=== PATIENT | male | born 1980 | race Two or more races ===

== ENCOUNTER 2017-01-19 19:03 | Emergency (ER) | payer MEDICAID ==
[2017-01-19 20:56] VITALS: BP 117/78
--- NOTE | 2017-01-19 21:31 | UC ---
Skin Complaint HPI - HPI Summary HPI Summary: Pt lives in shelter for help with MR. Pt here wth aide. Pt with significant flexion contracture of left wrist. Pt frequently slaps wrist. Pt noted today to have erythema of dorsum of flexed left wrist. Pt with small abrasion also noted. Pt with apart discomfort. No edema. + warmth. No fever, chills. no red streak. No other injuries. No analgesia taken. Pt otherwise at [facility] Pt's medications reviewed at this visit - History of Current Complaint Chief Complaint: UCUpperExtremity Time Seen by Provider: 01/19/17 20:39 Stated Complaint: HAND PAIN,SWELLING Hx Obtained From: Patient, Family/Production Clerk Onset/Duration: Gradual Onset Skin Exposure Onset/Duration: Hours Ago Timing: Constant Onset Severity: Mild Current Severity: Mild Pain Scale Used: Adult Non Verbal Location: Discrete Character: Redness Aggravating: Touch Alleviating: Unknown Associated Signs & Symptoms: Positive: Negative - Allergy/Home Medications Allergies/Adverse Reactions: Allergies Allergy/AdvReac Type Severity Reaction Status Date / Time No Known Drug Allergy Allergy See Comment Verified 01/19/17 20:56 Purex Laundry Soap AdvReac Unknown See Comment Uncoded 10/07/15 08:46 Review of Systems Constitutional: Negative Skin: Other - erythema Eyes: Negative ENT: Negative Respiratory: Negative Cardiovascular: Negative Gastrointestinal: Negative Genitourinary: Negative Motor: Negative Neurovascular: Negative Musculoskeletal: Negative Neurological: Negative Psychological: Negative All Other Systems Reviewed And Are Negative: Yes - Comments Additional Review of Systems Comments: per staff - pt with CP - PMH/Surg Hx/FS Hx/Imm Hx Previously Healthy: Yes Neurological History: Other - cp, seizures Other Neurological History: CP - Surgical History Surgical History: Yes Surgery Procedure, Year, and Place: CONTACT LENS BLOCKER Shunt Placement - Family History Known Family History: Positive: Unknown - Pt nonverbal with MR - Social History Occupation: Disabled Lives: [facility] Alcohol Use: None Substance Use Type: None Smoking Status (MU): Never Smoked Tobacco Have You Smoked in the Last Year: No - Immunization History Most Recent Influenza Vaccination: January 2015 Most Recent Tetanus Shot: 2007 Most Recent Pneumonia Vaccination: 2005 Physical Exam Triage Information Reviewed: Yes Appearance: Well-Appearing, No Pain Distress, Well-Nourished Vital Signs: Initial Vital Signs Temp 99.4 F 01/19/17 20:51 Pulse 82 01/19/17 20:51 Resp 16 01/19/17 20:51 BP 117/78 01/19/17 20:51 Pulse Ox 99 01/19/17 20:51 Vital Signs Reviewed: Yes Eye Exam: Normal Eyes: Positive: Conjunctiva Clear. Negative: Discharge ENT Exam: Normal ENT: Positive: Normal ENT inspection, Hearing grossly normal, Pharynx normal, TMs normal Neck exam: Normal Neck: Positive: Supple, Nontender, No Lymphadenopathy Respiratory: Positive: Chest non-tender, Lungs clear, Normal breath sounds, No respiratory distress, No accessory muscle use Cardiovascular Exam: Normal Cardiovascular: Positive: Other: - 2+ radial, ulna Abdominal Exam: Normal Abdomen Description: Positive: Nontender, No Organomegaly, Soft Bowel Sounds: Positive: Present Musculoskeletal: Positive: Other: - Pt wit full flexion contracture left wrist Neurological: Positive: Alert Skin: Positive: Other - dorsum left wrist - pt wtih 3x2 cm area erythema with small, non-suture abrasion warm no crepitus, no fluctance Course/Dx - Course Course Of Treatment: Pt with apparent early cellulitis on left wrist, dorsum - first noted by caregivers today. no cocern for abscess. previous resident in house with MRSA +. will start doxy. wound demarcated by me. pcp recheck 48 hours. return precautions discussed. customer care specialist comfortable and in agreement with plan - Diagnoses Provider Diagnoses: cellulitis Discharge - Discharge Plan Condition: Stable Disposition: HOME Prescriptions: Doxycycline (Monohydrate) [Doxycycline Monohydrate] 100 mg PO BID #20 cap Patient Education Materials: Cellulitis (ED) Referrals: Saira Horn MD [Primary Care Provider] - Additional Instructions: - take antibiotics 2 times a day as prescribed until gone - monitor wound for increased reddness, red streaking, pain - if this develops, it is recommended you go to the emergency department for further evaluation - Okay to give tylenol every 6 hours as needed for pain - Schedule a follow-up appointment with his provider in the next 36-48 hours. Contact his provider or return with questions or concerns
[2017-01-19] MEDS ORDERED: Doxycycline (NF) 100 MG TAB PO ONE (21:45)
[2017-01-19] MEDS ORDERED: DOXYcycline CAP(*) 100 MG ONE ×2 (21:52)
== END 2017-01-19 22:00 | disposition home or self-care (01) ==
LOC: UCEAST 19:03
DX: L03.114 Cellulitis of left upper limb (principal); M24.532 Contracture, left wrist; F79 Unspecified intellectual disabilities; R56.9 Unspecified convulsions
CPT/HCPCS: 99212; A9270-GY; G0463

== ENCOUNTER 2018-12-09 17:43 | Emergency (ER) | payer MEDICAID ==
[2018-12-09 21:15] LABS: Albumin 4.2 g/dL (3.2-5.2); Albumin/Globulin Ratio 1.4 (1-3); BUN/Creatinine Ratio 14.9 (8-20); Calcium 10.1 mg/dL (8.6-10.3); EGFR African American 99.5 (>60); EGFR Non-African American 82.2 (>60); Globulin 3.1 g/dL (2-4); Total Bilirubin 0.2 mg/dL (0.2-1.0); Total Protein 7.3 g/dL (6.4-8.9)
[2018-12-09 21:18] LABS: Potassium 4.1 mmol/L (3.5-5.0)
[2018-12-09 22:13] LABS: ABS Eosinophils 0.2 10^3/ul (0-0.6); ABS Lymphocytes 2.7 10^3/ul (1.0-4.8); ABS Monocytes 0.9 10^3/ul (0-0.8); ABS Neutrophils 4.4 10^3/ul (1.5-7.7); Eosinophil % 2.2 %; Hematocrit 42 % (42-52); Hemoglobin 14.2 g/dL (14.0-18.0); Lymphocyte % 32.9 %; Mean Corpuscular HGB Conc 34 g/dL (31-36); Mean Corpuscular Hemoglobin 31 pg (27-31); Mean Corpuscular Volume 93 fL (80-94); Mean Platelet Volume 7.8 fL (7.4-10.4); Platelet Count 315 10^3/uL (150-450); Red Blood Count 4.57 10^6 /uL (4.18-5.48); Red Cell Distribution Width 14 % (10-15); White Blood Count 8.3 10^3/uL (3.5-10.8)
[2018-12-10] MEDS ORDERED: Divalproex ER TAB(*) 500 MG PO ONE (00:41)
--- NOTE | 2018-12-10 00:47 | ED ---
Neurological HPI - HPI Summary HPI Summary: The pt is a 38 yr old male accompanied by his caregiver [facility] c/o seizure and possible dehydration. He is unable to respond to medical questioning independently due to MR and his caregiver states that he has had 4 seizures this week. 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 She also mentions that the [facility] neurology department sent the pt to the ED for bloodwork. His caregiver reports no fever and that he is incontinent. He takes a 750mg dose of depakote in the morning (500 mg depakote, one tablet, and 125 mg depakote, two tablets) and a 1000mg (500 mg, two tablets) dose at night. The pt also has Hx of seizures, mental retardation, and developmental delay. - History of Current Complaint Chief Complaint: EDSeizure Stated Complaint: SEIZURE PER AFTERSCHOOL Time Seen by Provider: 12/10/18 00:32 Hx Obtained From: Family/Director Of Database Marketing Hx From Patient Unobtainable Due To: Other - MR Onset/Duration: Sudden Onset, Started hours ago, Resolved Number of Seizures: 2 Pain Intensity: 0 Pain Scale Used: 0-10 Numeric Character: Other: - seizure Associated Signs and Symptoms: Positive: Seizure, Incontinent Bladder/Bowel. Negative: Fever - Additional Pertinent History Primary Care Physician: ARLYN - Allergy/Home Medications Allergies/Adverse Reactions: Allergies Allergy/AdvReac Type Severity Reaction Status Date / Time No Known Allergies Allergy Verified 12/09/18 17:46 PMH/Surg Hx/FS Hx/Imm Hx Respiratory History: Reports: Hx Pneumonia GI History: Reports: Other GI Disorders - Chronic constipation History: Denies: Hx Acute Renal Failure, Hx Benign Prostatic Hyperplasia, Hx Chronic Renal Failure, Hx Dialysis, Hx Kidney Infection, Hx Kidney Stones, Other Problems/Disorders Musculoskeletal History: Reports: Other Musculoskeletal History - L hand contracture, L lower leg deformity Denies: Hx Arthritis, Hx Osteoporosis Neurological History: Reports: Hx Developmental Delay, Hx Seizures, Other Neuro Impairments/Disorders - mental retardation Denies: Hx Dementia, Hx Headaches, Hx Migraine, Hx Nerve Disease, Hx Spinal Cord Injury, Hx Transient Ischemic Attacks (TIA) Psychiatric History: Reports: Hx Community Mental Health Tx, Hx of Violent Episodes Against Others, Other Psychiatric Issues/Disorders - Severe MR - Cancer History Hx Chemotherapy: No Hx Radiation Therapy: No Hx Palliative Cancer Treatment: No - Surgical History Surgery Procedure, Year, and Place: ELEVATOR REPAIRER Shunt Placement Hx Anesthesia Reactions: No Infectious Disease History: No Infectious Disease History: Denies: Hx Clostridium Difficile, Hx Hepatitis, Hx Human Immunodeficiency Virus (HIV), Hx of Known/Suspected MRSA, Hx Shingles, Hx Tuberculosis, Hx Known/ Suspected VRE, Hx Known/Suspected VRSA, History Other Infectious Disease, Traveled Outside the [place] in Last 30 Days - Family History Known Family History: Positive: Unknown - Pt nonverbal with MR - Social History Alcohol Use: None Hx Substance Use: No Substance Use Type: Reports: None Hx Tobacco Use: No Smoking Status (MU): Never Smoked Tobacco Have You Smoked in the Last Year: No Review of Systems Negative: Fever Positive: incontinence Neurological: Other - Positive - Seizure, since resolved All Other Systems Reviewed And Are Negative: Yes - Comments Additional Review of Systems Comments: ROS obtained from caregiver as patient has mental retardation. Physical Exam - Summary Physical Exam Summary: VITAL SIGNS: Reviewed. GENERAL: Patient is a well-developed and nourished male who is lying comfortable in the stretcher. Patient is not in any acute respiratory distress. HEAD AND FACE: No signs of trauma. No ecchymosis, hematomas or skull depressions. No sinus tenderness. EYES: PERRLA, EOMI x 2, No injected conjunctiva, no nystagmus. EARS: Hearing grossly intact. Ear canals and tympanic membranes are within normal limits. MOUTH: Oropharynx within normal limits. NECK: Supple, trachea is midline, no adenopathy, no JVD, no carotid bruit, no c- spine tenderness, neck with full ROM CHEST: Symmetric, no tenderness at palpation LUNGS: Clear to auscultation bilaterally. No wheezing or crackles. CVS: Regular rate and rhythm, S1 and S2 present, no murmurs or gallops appreciated. ABDOMEN: Soft, non-tender. No signs of distention. No rebound no guarding, and no masses palpated. Bowel sounds are normal. EXTREMITIES: FROM in all major joints, no edema, no cyanosis or clubbing. NEURO: No acute neurological deficits. SKIN: Dry and warm Triage Information Reviewed: Yes Vital Signs On Initial Exam: Initial Vitals Temp Pulse Resp BP Pulse Ox 98.3 F 76 15 104/68 98 12/09/18 17:45 12/09/18 17:45 12/09/18 17:45 12/09/18 17:45 12/09/18 17:45 Vital Signs Reviewed: Yes Diagnostics - Vital Signs Vital Signs Temp Pulse Resp BP Pulse Ox 12/09/18 23:50 98.2 F 62 20 130/75 99 12/09/18 21:54 98.1 F 69 18 113/72 99 12/09/18 19:52 98 F 75 18 106/66 100 12/09/18 17:45 98.3 F 76 15 104/68 98 - Laboratory Lab Results: Lab Results 12/09/18 12/09/18 Range/Units 20:53 21:45 WBC 8.3 (3.5-10.8) 10^3/uL RBC 4.57 (4.18-5.48) 10^6 /uL Hgb 14.2 (14.0-18.0) g/dL Hct 42 (42-52) % MCV 93 (80-94) fL MCH 31 (27-31) pg MCHC 34 (31-36) g/dL RDW 14 (10-15) % Plt Count 315 (150-450) 10^3/uL MPV 7.8 (7.4-10.4) fL Neut % (Auto) 53.2 % Lymph % (Auto) 32.9 % [place] % (Auto) 11.2 % Eos % (Auto) 2.2 % Baso % (Auto) 0.5 % Absolute Neuts (auto) 4.4 (1.5-7.7) 10^3/ul Absolute Lymphs (auto) 2.7 (1.0-4.8) 10^3/ul Absolute Monos (auto) 0.9 H (0-0.8) 10^3/ul Absolute Eos (auto) 0.2 (0-0.6) 10^3/ul Absolute Basos (auto) 0.0 (0-0.2) 10^3/ul Absolute Nucleated RBC 0.0 10^3/ul Nucleated RBC % 0.0 Sodium 138 (135-145) mmol/L Potassium 4.1 (3.5-5.0) mmol/L Chloride 103 (101-111) mmol/L Carbon Dioxide 28 (22-32) mmol/L Anion Gap 7 (2-11) mmol/L BUN 15 (6-24) mg/dL Creatinine 1.01 (0.67-1.17) mg/dL Est GFR ( Amer) 99.5 (>60) Est GFR (Non-Af Amer) 82.2 (>60) BUN/Creatinine Ratio 14.9 (8-20) Glucose 84 (70-100) mg/dL Calcium 10.1 (8.6-10.3) mg/dL Total Bilirubin 0.20 (0.2-1.0) mg/dL AST 24 (13-39) U/L ALT 13 (7-52) U/L Alkaline Phosphatase 37 (34-104) U/L Total Protein 7.3 (6.4-8.9) g/dL Albumin 4.2 (3.2-5.2) g/dL Globulin 3.1 (2-4) g/dL Albumin/Globulin Ratio 1.4 (1-3) Valproic Acid 42.0 L (50-100) mcg/mL Result Diagrams: 12/09/18 21:45 12/09/18 20:53 Lab Statement: Any lab studies that have been ordered have been reviewed, and results considered in the medical decision making process. Course/Dx - Course Course Of Treatment: The pt is a 38 yr old male accompanied by his caregiver presenting to [facility] c/o seizure and possible dehydration. 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 He currently takes a 750mg dose of depakote in the morning and a 1000mg dose at night. The pt also has Hx of seizures, mental retardation, and developmental delay. Test results with no significant abnormalities expect for Absolute Monos @ 0.9, and Valproic acid @ 42.0. In the ED course the patient was given 1000mg Depakote PO. The pt should increase morning dose of depakote from 750mg to 1000mg. Follow -up with neurologist and PCP within 3 days. Return to the ED for any new or worsening symptoms. Patient will be discharged home and is advised to follow up with PCP and neurologist within 3 days. The patients caregiver is agreeable with this plan. - Diagnoses Provider Diagnoses: Seizure Discharge - Sign-Out/Discharge Documenting (check all that apply): Patient Departure - Discharged. Patient Received Moderate/Deep Sedation with Procedure: No - Discharge Plan Condition: Stable Disposition: HOME Patient Education Materials: Recurrent Seizures in Adults (ED) Referrals: Saira Horn MD [Primary Care Provider] - 3 Days Additional Instructions: Increase morning dose of depakote from 750mg to 1000mg. Follow-up with neurologist and PCP within 3 days. Return to the ED for any new or worsening symptoms. - Attestation Statements Document Initiated by Scribe: Yes Documenting Scribe: Heriberto Mayo Provider For Whom Scribe is Documenting (Include Credential): Noel Gilmore MD Scribe Attestation: IHeriberto, scribed for Noel Gilmore MD on 12/10/18 at 0348. Status of Scribe Document: Ready
[2018-12-10 01:29] VITALS: BP 133/85
== END 2018-12-10 01:30 | disposition home or self-care (01) ==
LOC: ED 17:43
DX: R56.9 Unspecified convulsions (principal)
CPT/HCPCS: 36415; 80053; 80164; 85025; 99283; A9270-GY

== ENCOUNTER 2019-04-09 21:06 | Emergency (ER) | payer MEDICAID ==
--- OUTSIDE RECORDS SUMMARY | 2019-04-09 21:16 | XMS REPORT | Continuity of Care Document ---
:1980 External Reference #:[id number] Author Name Erik Aguilar M.D. (transmitted by agent of provider Jd Cavanaugh) Address [address], [place] [address] Care Team Providers Name Role Phone Sandra Reina MD - Internal Care Team Information Switch Crew Supervisor [phone] Medicine Problems Active Problems Provider Date Epilepsy Yolanda Mata M.D. Onset: 09/21/2014 Severe cognitive impairment Yolanda Mata M.D. Onset: 09/21/2014 Social History Type Date Description Comments Sex Unknown ETOH Use Denies alcohol use Tobacco Use Start: Unknown Patient has never smoked Recreational Drug Use Denies Drug Use Smoking Status Reviewed: 02/23/19 Patient has never smoked Exercise Type/Frequency Does not exercise Allergies, Adverse Reactions, Alerts Description No Known Drug Allergies Medications Active Medications SIG Qnty Indications Ordering Date Provider Shane give one 300units Erik Jaime 06/23/2016 1GM/10ML teaspoonful (5ml) Constantine Aguilar Solution by mouth 2 times a day Lamictal take 1 tablet by 60tabs Erik Jaime 01/18/2015 200mg mouth twice a day Constantine Aguilar Tablets (seizures) Calcium + D 1 po qd Yolanda Joyner 05/25/2013 500/200 Constantine Mata Tablets Tizanidine HCL 1 po tid 90caps Yolanda Joyner 05/25/2013 4mg Constantine Mata Capsules Melatonin 1mg tabs, 2 po q Yolanda Joyner 05/25/2013 night.. Constantine Mata Depakote 2 by mouth every 90tabs Erik Jaime 07/27/2012 500mg morning and [address] every night at bedtime Celexa 1 po qd 90tabs Unknown 20mg Tablets Sabin Carbonate 1 po daily Unknown 300mg Tablets Lactulose 30 ml po bid 1Liter Unknown 10GM/15ML Solution Multivitamins 1 po qd 90tabs Unknown Tablets Colace 2 tabs po daily 180caps Unknown 100mg Capsules Senna Laxative 2 tab by mouth 90tabs Unknown 8.6mg every night Tablets Metrogel apply to facial Unknown 1% Gel twice daily Cerave to feet. Unknown Lotion Immunizations Description No Information Available Vital Signs Date Vital Result Comment 02/23/2019 11:06am Height 68 inches 5'8" Weight 144.00 lb Heart Rate 79 /min BP Systolic Sitting 104 mmHg BP Diastolic Sitting 78 mmHg Respiratory Rate 16 /min Pain Level 0 O2 % BldC Oximetry 98 % BMI (Body Mass Index) 21.9 kg/m2 12/13/2018 2:35pm Height 68 inches 5'8" Weight 151.00 lb pt in wheelchair Heart Rate 68 /min BMI (Body Mass Index) 23.0 kg/m2 Results Description No Information Available Procedures Description No Information Available Medical Devices Description No Information Available Encounters Type Date Location Provider Dx Diagnosis Office Visit 12/13/2018 [facility] Humberto Gavin NP Z79.899 Other director long term care 2:00[facility] (current) drug therapy G40.909 Epilepsy, unsp, not intractable, without status epilepticus Assessments Date Code Description Provider 02/23/2019 Z79.899 Other [facility] (current) drug therapy Erik Aguilar M.D. 02/23/2019 G81.14 Spastic hemiplegia affecting left Erik Aguilar M.D. nondominant side 02/23/2019 G40.919 Epilepsy, unspecified, intractable, without Erik Aguilar M.D. status epilepticus 12/13/2018 Z79.899 Other [facility] (current) drug therapy Humberto Gavin NP 12/13/2018 G40.909 Epilepsy, unspecified, not intractable, Humberto Gavin, CHANELL without status epile Plan of Treatment Future Appointment(s):08/24/2019 10:00 am - Erik [facility]ilar M[facility]D. at [facility]02/23/2019 - Erik Aguilar M.D.Z79.899 Other [facility] (current) drug veoucrkH77.14 Spastic hemiplegia affecting left nondominant sideG40.919 Epilepsy, unspecified, intractable, without status epilepticusFollow up:6 MONTHSRecommendations:stop diastat Functional Status Description No Information Available Mental Status Description No Information Available Referrals Description No Information Available
[2019-04-09] MEDS ORDERED: Cephalexin CAP* 500 MG PO ONE (21:18)
--- NOTE | 2019-04-09 21:27 | UC ---
Skin Complaint HPI - HPI Summary HPI Summary: 38-year-old male with developmental disability presents with caregiver from longterm with complaints of redness to the left lower extremity. Caregiver is unsure of the duration of symptoms but does note that he has had a long- standing foot ulcer to the plantar aspect of his left foot that has been followed by the [facility]. He was last evaluated there on 03/23. Caregiver denies fever, difficulty breathing, calf pain or swelling. - History of Current Complaint Chief Complaint: UCSkin Time Seen by Provider: 04/09/19 21:12 Stated Complaint: LEFT LEG SKIN COMPLAINT Hx Obtained From: Family/Rn Clinical Resource Pain Intensity: 0 - Allergy/Home Medications Allergies/Adverse Reactions: Allergies Allergy/AdvReac Type Severity Reaction Status Date / Time No Known Allergies Allergy Verified 04/09/19 21:16 Home Medications: Home Medications Calcium Carbonate [Calcium] 500 mg PO DAILY 04/09/19 [History Confirmed 04/09/19 ] Citalopram TAB* [CeleXA TAB*] 20 mg PO DAILY 04/09/19 [History Confirmed ] Melatonin/Pyridoxine HCl (B6) [Melatonin 1 mg Tablet] 2 mg PO BEDTIME 04/09/19 [ History Confirmed 04/09/19] PMH/Surg Hx/FS Hx/Imm Hx Neurological History: Seizures, Other - Hydrocephalus Psychological History: Other - Intelectual and developmental delay - Surgical History Surgical History: Yes Surgery Procedure, Year, and Place: ROCK CONTRACTOR Shunt Placement. tendon stretching left side - Family History Known Family History: Positive: Unknown - Pt nonverbal with MR - Social History Occupation: Disabled Lives: [facility] Alcohol Use: None Substance Use Type: None Smoking Status (MU): Never Smoked Tobacco Have You Smoked in the Last Year: No - Immunization History Most Recent Influenza Vaccination: January 2015 Most Recent Tetanus Shot: 2007 Most Recent Pneumonia Vaccination: 2005 Review of Systems All Other Systems Reviewed And Are Negative: Yes Constitutional: Negative: Fever, Chills Skin: Positive: Other - HPISee Respiratory: Positive: Negative Cardiovascular: Positive: Negative Gastrointestinal: Positive: Negative Genitourinary: Positive: Negative Musculoskeletal: Positive: Negative Neurological: Positive: Negative Psychological: Positive: Negative Is Patient Immunocompromised?: No Physical Exam - Summary Physical Exam Summary: GENERAL APPEARANCE: Alert and cooperative adult male with developmental delay who appears to be in no acute distress. CARDIAC: Normal S1 and S2. No S3, S4 or murmurs. Rhythm is regular. There is no peripheral edema, cyanosis or pallor. Extremities are warm and well perfused. Capillary refill is less than 2 seconds. Peripheral pulses intact. LUNGS: Clear to auscultation without rales, rhonchi, wheezing or diminished breath sounds. ABDOMEN: Positive bowel sounds. Soft, nondistended, nontender. No guarding or rebound. No masses or hepatosplenomegally. EXTREMITIES: Circumferential erythema with increased warmth to the left lower leg extending from the toes to the proximal lower leg. Calf was supple and appeared to be nontender. Circulation was intact. There was a 1.5 cm circular ulceration with eschar tissue to the plantar surface of the left foot immediately inferior to the MTP of the great toe without erythema, edema, or drainage. SKIN: Skin normal color, texture and turgor. Triage Information Reviewed: Yes Vital Signs: Initial Vital Signs Temp 97.6 F 04/09/19 21:10 Pulse 73 04/09/19 21:10 Resp 20 04/09/19 21:10 Pulse Ox 97 04/09/19 21:10 Vital Signs Reviewed: Yes Course/Dx - Course Course Of Treatment: 38-year-old male with developmental disability presents with caregiver from longterm with complaints of redness to the left lower extremity. Caregiver is unsure of the duration of symptoms but does note that he has had a long- standing foot ulcer to the plantar aspect of his left foot that has been followed by the [facility]. He was last evaluated there on 03/23. Caregiver denies fever, difficulty breathing, calf pain or swelling. Afebrile. Vital signs stable. Patient had circumferential erythema with increased warmth to the left lower leg extending from the toes to the proximal lower leg. Calf was supple and appeared to be nontender. Circulation was intact. There was a 1.5 cm circular ulceration with eschar tissue to the plantar surface of the left foot immediately inferior to the MTP of the great toe without erythema, edema, or drainage. Discussed with caregiver that the history and examination are consistent with a cellulitis of the left lower leg and of recommended treating with cephalexin 500 mg one capsule 4 times a day for 7 days. He was dispensed home with 2 doses of the antibiotic to start tonight and then another dose first thing in the morning and a prescription was sent for the remainder of the course. He is to follow-up with his primary care provider in one to 2 days for recheck of symptoms. Anticipatory guidance and warning symptoms were reviewed with the caregiver. Verbalizes understanding and agrees with plan of care. - Differential Diagnoses - Skin Complaint Differential Diagnoses: Cellulitis, Contact Dermatitis, Local Allergic Reaction , MRSA, Other - DVT - Diagnoses Provider Diagnosis: Cellulitis of left lower leg Discharge ED - Sign-Out/Discharge Documenting (check all that apply): Patient Departure All imaging exams completed and their final reports reviewed: No Studies - Discharge Plan Condition: Stable Disposition: HOME Prescriptions: Cephalexin CAP* [Keflex 500 CAP*] 500 mg PO QID #26 cap Patient Education Materials: Cellulitis (ED) Referrals: Saira Horn MD [Primary Care Provider] - 2 Days Additional Instructions: The history and physical are consistent with a cellulitis of the left lower leg. We will start an antibiotic to treat for the infection. Take cephalexin 500 mg one capsule 4 times a day for 7 days. Be sure to take the entire course even if symptoms improve. Follow-up with your primary care provider in one to 2 days for recheck of symptoms. Seek immediate medical attention in the emergency room if you develop a fever greater than 100.5 F, have redness that rapidly spreads, increased swelling of the leg, red streaking up the leg, or any worsening of symptoms. - Billing Disposition and Condition Condition: STABLE Disposition: Home
== END 2019-04-09 21:33 | disposition home or self-care (01) ==
LOC: UCCORT 21:06
DX: L03.116 Cellulitis of left lower limb (principal); R56.9 Unspecified convulsions; Z79.899 Other long term (current) drug therapy
CPT/HCPCS: 99212; A9270-GY; G0463

== ENCOUNTER 2019-05-29 10:53 | Emergency (ER) | payer MEDICAID ==
--- OUTSIDE RECORDS SUMMARY | 2019-05-29 11:44 | XMS REPORT | Summary of Care ---
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 0 Active TABS Melatonin 1 MG Take 2 mg by 0 Active Oral Tab mouth EVERY BEDTIME. EAR WAX REMOVAL INSTILL 4 DROPS 15 mL 0 05/02/20 Active DROPS 6.5 % Otic INTO AFFECTED EAR 15 Solution NEEDED (EAR WAX REMOVAL) MILK OF MAGNESIA GIVE 2 473 mL 5 06/05/19 Active 7.75 % Oral TABLESPOONFULS 16 Suspension (30ML) BY MOUTH FOR NO BOWEL MOVEMENT IN 2 DAYSREPEAT ON 3RD DAY IF STILL NO BOWEL MOVEMENT citalopram TAKE ONE TABLET 30 Tab 5 11/11/19 Active (CELEXA) 20 MG BY MOUTH EVERY 16 Oral Tab MORNING (MOOD STABILIZER) bisacodyl Place 1 12 Suppository 5 12/10/19 Active (BISCOLAX) 10 MG Suppository per 16 Rectal Suppos rectum NEEDED (as needed if no bowel movement in 4 days). MICRO GUARD 2 % APPLY TO FEET 2 85 g 0 12/30/19 Active Apply externally TIMES A DAY 16 Powder NEEDED (ANTIFUNGAL) docusate sodium TAKE 2 CAPSULES 60 Cap 10 02/07/20 Active (COLACE) 100 MG BY MOUTH EVERY 16 Oral Cap DAY (STOOL SOFTENER) pseudoephedrine TAKE TWO TABLETS 30 Tab 10 03/18/20 Active (SUDAFED) 30 MG BY MOUTH EVERY 4 16 Oral Tab HOURS NEEDED FOR (CONGESTION) divalproex sodium Take 1,000 mg by 60 Tab 0 03/28/20 Active (DEPAKOTE) 500 MG mouth TWICE 16 Oral Tab EC DAILY. 1 tab am, 2 tab pm Lamotrigine Take 1 Tab by 60 Tab 0 03/28/20 Active (LAMICTAL) 200 MG mouth TWICE 16 Oral Tab DAILY. dextromethorphan-g Take 10 mL by 473 mL 10 07/19/19 Active uaifenesin mouth EVERY SIX 18 (Q-TUSSIN DM) HOURS NEEDED 10-100 MG/5ML Oral (cough). Syrup LEVOCARNITINE PO Take 100 mg/mL by 0 Active mouth TWICE DAILY. triazolam Take 0.25 mg by 0 Active (HALCION) 0.25 MG mouth EVERY Oral Tab BEDTIME NEEDED. Sennosides (SENNA) TAKE TWO TABLETS 60 Tab 9 09/10/19 Active 8.6 MG Oral Tab BY MOUTH AT 19 BEDTIME (CONSTIPATION) Calcium TAKE ONE TABLET 30 Tab 9 11/01/19 Active Carbonate-Vitamin BY MOUTH EVERY 19 D (OYSTER SHELL DAY (SUPPLEMENT) CALCIUM-VITAMIN D) 500-200 MG-UNIT Oral Tab Multiple Vitamin Take 1 Tab by 30 Tab 9 01/03/20 Active (MULTI-VITAMINS) mouth DAILY. 19 Oral Tab metroNIDAZOLE 1 % 1 Appl by Topical 60 g 5 01/20/20 Active Apply externally route TWICE 19 Gel DAILY. tizanidine TAKE ONE TABLET 90 Tab 4 09/04/20 Active (ZANAFLEX) 4 MG BY MOUTH 3 TIMES 19 Oral Tab A DAY (MUSCLE RELAXER) Lactulose Take 30 mL by 1892 mL 5 03/24/20 Active Encephalopathy 10 mouth TWICE 19 GM/15ML Oral DAILY. Solution cephalexin Take 1 Cap by 28 Cap 0 04/17/20 Active (KEFLEX) 500 MG mouth FOUR TIMES 19 Oral DAILY. CapIndications: Cellulitis of left lower extremity DiazePAM [address] per 0 Discontinued Rectal Gel rectum. 019 LORazepam (ATIVAN) Take 1 mg by 0 Discontinued 1 MG Oral mouth EVERY FOUR 019 TabIndications: HOURS NEEDED. 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 Seizure disorder 05/27/2007 documented as of this encounter (statuses as of 04/17/2019) Immunizations Name Administration Dates Next Due Influenza (IM) Preservative Free 02/20/2019, 02/22/2018, 03/16/2016, 03/06/2015, 03/04/2009 Influenza Virus Vaccine Pres Free 6-35 03/02/2017 Months PNEUMOCOCCAL POLYSACCHARIDE VACCINE 02/13/2004 TDAP Vaccine 08/01/2018, 04/30/2008 documented as of this encounter Social History Tobacco Use Types Packs/Day Years Used Date Never Smoker Smokeless Tobacco: Never Used Alcohol Use Drinks/Week oz/Week Comments No Sex Assigned at Date Recorded Not on file Job Start Date Occupation Industry Not on file Not on file Not on file Travel History Travel Start Travel End No recent travel history available. documented as of this encounter Last Filed Vital Signs Vital Sign Reading Time Taken Comments Blood Pressure 128/54 04/17/2019 1:39 PM EST Pulse 90 04/17/2019 1:39 PM EST Temperature 36.6 04/17/2019 1:39 PM EST C (97.8 F) Respiratory Rate - - Oxygen Saturation 98% 04/17/2019 1:39 PM EST Inhaled Oxygen Concentration - - Weight 70.3 kg (155 lb) 04/17/2019 1:39 PM EST Height 172.7 cm (5' 8") 04/17/2019 1:39 PM EST Body Mass Index 23.57 04/17/2019 1:39 PM EST documented in this encounter Patient Instructions Patient InstructionsAnny Bueno NP - 04/17/2019 1:40 PM ESTKeflex 500 mg - take one tablet four times daily for 7 days. Please make a new appointment with wound care. Please follow up on Wednesday with Dr. Horn for recheck. If he develops worsening or spreading redness, fevers, or other concerning symptoms - please call orreturn sooner. documented in this encounter Progress Notes Anny Bueno NP - 04/17/2019 1:40 PM EST PATIENT: Jordan Wang : 1980 DATE OF SERVICE: 04/17/2019 CHIEF COMPLAINT: Chief Complaint Patient presents with Follow Up to cellulitus on L foot, went to [facility] on 04/09 Subjective HISTORY OF PRESENT ILLNESS: Jordan Wang is a 38-y.o. male. [facility] on 04/09 for left leg cellulitis. Chronic wound on left foot. Started on Keflex 500 mg QID for 7 days. Carefgiver is unsure when he finished the keflex. Left leg is not hot to the touch anymore but still swollen. He missed his appointment with wound care on Wednesday. He sees someone from wound care in [place]. No fevers. No drainage that caregiver has noticed. 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 Victoria is his psychiatrist Family History Family history unknown: Yes Current Outpatient Medications Medication Sig bisacodyl (BISCOLAX) [address] 1 Suppository per rectum NEEDED (as needed if no bowel movement in 4 days). Calcium Carbonate-Vitamin D (OYSTER SHELL CALCIUM-VITAMIN D) 500-200 MG- UNIT Oral Tab TAKE ONE TABLET BY MOUTH EVERY DAY (SUPPLEMENT) cephalexin (KEFLEX) 500 MG Oral Cap Take 1 Cap by mouth FOUR TIMES DAILY. citalopram (CELEXA) 20 MG Oral Tab TAKE ONE TABLET BY MOUTH EVERY MORNING (MOOD STABILIZER) dextromethorphan-guaifenesin (Q-TUSSIN DM) 10-100 MG/5ML Oral Syrup Take 10 mL by mouth EVERYSIX HOURS NEEDED (cough). divalproex sodium (DEPAKOTE) 500 MG Oral Tab EC Take 1,000 mg by mouth TWICE DAILY. 1 tab am,2 tab pm docusate sodium (COLACE) 100 MG Oral Cap TAKE 2 CAPSULES BY MOUTH EVERY DAY (STOOL SOFTENER) EAR WAX REMOVAL DROPS 6.5 % Otic Solution INSTILL 4 DROPS INTO AFFECTED EAR NEEDED (EAR WAX REMOVAL) Lactulose Encephalopathy 10 GM/15ML Oral Solution Take 30 mL by mouth TWICE DAILY. Lamotrigine (LAMICTAL) 200 MG Oral Tab Take 1 Tab by mouth TWICE DAILY. LEVOCARNITINE PO Take 100 mg/mL by mouth TWICE DAILY. lithium 300 MG PO TABS DAILY. Melatonin 1 MG Oral Tab Take 2 mg by mouth EVERY BEDTIME. metroNIDAZOLE 1 % Apply externally Gel 1 Appl by Topical route TWICE DAILY. MICRO GUARD 2 % Apply externally Powder APPLY TO FEET 2 TIMES A DAY NEEDED (ANTIFUNGAL) MILK OF MAGNESIA 7.75 % Oral Suspension GIVE 2 TABLESPOONFULS (30ML) BY MOUTH FOR NO BOWEL MOVEMENT IN 2 DAYSREPEAT ON 3RD DAY IF STILL NO BOWEL MOVEMENT Multiple Vitamin (MULTI-VITAMINS) Oral Tab Take 1 Tab by mouth DAILY. pseudoephedrine (SUDAFED) 30 MG Oral Tab TAKE TWO TABLETS BY MOUTH EVERY 4 HOURS NEEDED FOR (CONGESTION) Sennosides (SENNA) 8.6 MG Oral Tab TAKE TWO TABLETS BY MOUTH AT BEDTIME ( CONSTIPATION) tizanidine (ZANAFLEX) 4 MG Oral Tab TAKE ONE TABLET BY MOUTH 3 TIMES A DAY (MUSCLE RELAXER) triazolam (HALCION) 0.25 MG Oral Tab Take 0.25 mg by mouth EVERY BEDTIME NEEDED. No current facility-administered medications for this visit. Allergies Allergen Reactions Soap & Cleansers Rash Pyrex laundry Social History Socioeconomic History Marital status: Single Spouse name: Not on file Number of children: Not on file Years of education: Not on file Highest education level: Not on file Occupational History Not on file Social Needs Financial resource strain: Not on file Food insecurity: Worry: Not on file Inability: Not on file Transportation needs: Medical: Not on file Non-medical: Not on file Tobacco Use Smoking status: Never Smoker Smokeless tobacco: Never Used Substance and Sexual Activity Alcohol use: No Drug use: No Sexual activity: Never Lifestyle Physical activity: Days per week: Not on file Minutes per session: Not on file Stress: Not on file Relationships Social connections: Talks on phone: Not on file Gets together: Not on file Attends jain service: Not on file Active member of club or organization: Not on file Attends meetings of clubs or organizations: Not on file Relationship status: Not on file Intimate partner violence: Fear of current or ex partner: Not on file Emotionally abused: Not on file Physically abused: Not on file Forced sexual activity: Not on file Other Topics Concern Back Care Not Asked Bike Helmet Not Asked Blood Transfusions Not Asked Caffeine Concern Not Asked Exercise No Comment: none formal though pt spontaneously running/moving around. Hobby Hazards Not Asked International Travel Not Asked Service Not Asked Occupational Exposure Not Asked Seat Belt Not Asked Self-Exams Not Asked Sleep Concern No Special Diet No Stress Concern Not Asked Weight Concern No Social History Narrative Lives in [facility]. Mother lives in [facility] Grandmother (Maria T Márquez -[phone], ) has POA. REVIEW OF SYSTEMS: Review of Systems Unable to perform ROS: Patient nonverbal Constitutional: Negative for fever. Skin: See hpi Objective PHYSICAL EXAM: VITALS: BP 128/54 (BP Location: Right arm, Patient Position: Sitting) | Pulse 90 | Temp 97.8 F (36.6 C) (Tympanic) | Ht 5' 8" (1.727 m) | Wt 155 lb (70.3 kg) | SpO2 98% | BMI 23.57 kg/m Body mass index is 23.57 kg/m . Physical Exam Vitals signs and nursing note reviewed. Constitutional: General: He is not in acute distress. Appearance: Normal appearance. He is well-developed. Cardiovascular: Rate and Rhythm: Normal rate and regular rhythm. Heart sounds: Normal heart sounds. No murmur. No friction rub. No gallop. Pulmonary: Effort: Pulmonary effort is normal. No respiratory distress. Breath sounds: Normal breath sounds. Musculoskeletal: Right ankle: Normal. Left ankle: He exhibits swelling (warm to touch). He exhibits normal range of motion and normal pulse. Tenderness (chronic wound left plantar surface). Right foot: Normal. Neurological: Mental Status: He is alert. Psychiatric: Mood and Affect: Mood and affect normal. Speech: Speech normal. Behavior: Behavior normal. Behavior is cooperative. ASSESSMENT / IMPRESSION: ICD-9-CM ICD-10-CM 1. Cellulitis of left lower extremity 682.6 L03.116 cephalexin (KEFLEX) 500 MG Oral Cap Plan 1. Cellulitis of left lower extremity Caregiver had picture of cellulitis from prior to treatment. Based on this cellulitis looks much improved after 7 day course of keflex - will extend therapy by 7 days, and recheck in 3 days. He should reschedule his wound care appointment that he missed on Wednesday. - cephalexin (KEFLEX) 500 MG Oral Cap; Take 1 Cap by mouth FOUR TIMES DAILY. Dispense: 28 Cap; Refill: 0 Author: Anny Bueno NP 04/17/2019 14:48 documented in this encounter Plan of Treatment Date Type Specialty Care Team Description 04/19/2019 Office Visit Family Practice Anny Bueno NP [address] [place] [address] [phone] 08/03/2019 Office Visit Family Practice Saira Horn MD [address] [place] [address] [phone] Health Maintenance Due Date Last Done Comments DEPRESSION SCREENING 01/18/2022 Postponed from 1991 (Patient has other medical reasons) PNEUMOCOCCAL 0-64 YRS Aged Out 02/13/2004 No longer eligible based on patient's age to complete this topic HPV IMMUNIZATION SERIES Aged Out No longer eligible based on patient's age to complete this topic MENINGOCOCCAL VACCINE IMM Aged Out No longer eligible based on patient's age to complete this topic documented as of this encounter Results Not on filedocumented in this encounter Visit Diagnoses Diagnosis Cellulitis of left lower extremity - Primary Cellulitis and abscess of leg, except foot documented in this encounter Insurance Payer Benefit Plan / Subscriber ID Effective Dates Phone Address Type Group [place] xxxxxxxx 2016-Present Medicaid [place] documented as of this encounter
--- OUTSIDE RECORDS SUMMARY | 2019-05-29 11:44 | XMS REPORT | Summary of Care ---
:1980 Author Organization [facility] Address [address] [facility] [place] [address] Care Team Providers Name Role Phone Saira Horn MD Primary Care Provider Reason for Referral Refer to Department Only (Routine) Status Reason Specialty Diagnoses / Referred By Referred To Procedures Contact Contact Pending Review Diagnoses Foot pain, left Anny Bueno, CALENDERING MACHINE OPERATOR [address] [place] [address] Reason for Visit Reason Comments Follow Up Cellulitus L lef and foot Encounter Details Date Type Department Care Team Description 04/19/2019 Office Visit [facility] Anny Bueno, Cellulitis of left lower extremity (Primary Dx); Practice CALENDERING MACHINE 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 0 Active TABS Melatonin 1 MG Oral Take 2 mg by mouth 0 Active Tab EVERY BEDTIME. EAR WAX REMOVAL INSTILL 4 DROPS 15 mL 0 Active DROPS 6.5 % Otic INTO AFFECTED EAR 5 Solution NEEDED (EAR WAX REMOVAL) MILK OF MAGNESIA GIVE 2 473 mL 5 Active 7.75 % Oral TABLESPOONFULS 6 Suspension (30ML) BY MOUTH FOR NO BOWEL MOVEMENT IN 2 DAYSREPEAT ON 3RD DAY IF STILL NO BOWEL MOVEMENT citalopram (CELEXA) TAKE ONE TABLET BY 30 Tab 5 Active 20 MG Oral Tab MOUTH EVERY 6 MORNING (MOOD STABILIZER) bisacodyl (BISCOLAX) Place 1 12 Suppository 5 Active 10 MG Rectal Suppos Suppository per 6 rectum NEEDED (as needed if no bowel movement in 4 days). MICRO GUARD 2 % APPLY TO FEET 2 85 g 0 Active Apply externally TIMES A DAY 6 Powder NEEDED (ANTIFUNGAL) docusate sodium TAKE 2 CAPSULES BY 60 Cap 10 Active (COLACE) 100 MG Oral MOUTH EVERY DAY 6 Cap (STOOL SOFTENER) pseudoephedrine TAKE TWO TABLETS 30 Tab 10 Active (SUDAFED) 30 MG Oral BY MOUTH EVERY 4 6 Tab HOURS NEEDED FOR (CONGESTION) divalproex sodium Take 1,000 mg by 60 Tab 0 Active (DEPAKOTE) 500 MG mouth TWICE DAILY. 6 Oral Tab EC 1 tab am, 2 tab pm Lamotrigine Take 1 Tab by 60 Tab 0 Active (LAMICTAL) 200 MG mouth TWICE DAILY. 6 Oral Tab dextromethorphan-gua Take 10 mL by 473 mL 10 Active ifenesin (Q-TUSSIN mouth EVERY SIX 8 DM) 10-100 MG/5ML HOURS NEEDED Oral Syrup (cough). LEVOCARNITINE PO Take 100 mg/mL by 0 Active mouth TWICE DAILY. triazolam (HALCION) Take 0.25 mg by 0 Active 0.25 MG Oral Tab mouth EVERY BEDTIME NEEDED. Sennosides (SENNA) TAKE TWO TABLETS 60 Tab 9 Active 8.6 MG Oral Tab BY MOUTH AT 9 BEDTIME (CONSTIPATION) Calcium TAKE ONE TABLET BY 30 Tab 9 Active Carbonate-Vitamin D MOUTH EVERY DAY 9 (OYSTER SHELL (SUPPLEMENT) CALCIUM-VITAMIN D) 500-200 MG-UNIT Oral Tab Multiple Vitamin Take 1 Tab by 30 Tab 9 Active (MULTI-VITAMINS) mouth DAILY. 9 Oral Tab metroNIDAZOLE 1 % 1 Appl by Topical 60 g 5 Active Apply externally Gel route TWICE DAILY. 9 tizanidine TAKE ONE TABLET BY 90 Tab 4 Active (ZANAFLEX) 4 MG Oral MOUTH 3 TIMES A 9 Tab DAY (MUSCLE RELAXER) Lactulose Take 30 mL by 1892 mL 5 Active Encephalopathy 10 mouth TWICE DAILY. 9 GM/15ML Oral Solution cephalexin (KEFLEX) Take 1 Cap by 28 Cap 0 Active 500 MG Oral mouth FOUR TIMES 9 CapIndications: DAILY. Cellulitis of left lower extremity documented as of this encounter (statuses as of 04/19/2019) Active Problems Problem Noted Date Contracture, left [...] as of this encounter (statuses as of 04/19/2019) Immunizations Name Administration Dates Next Due Influenza [...] Sign Reading Time Taken Comments Blood Pressure 126/62 04/19/2019 10:03 AM EST Pulse 78 04/19/2019 10:03 AM EST Temperature 35.8 04/19/2019 10:03 AM EST C (96.4 F) Respiratory Rate - - Oxygen Saturation 99% 04/19/2019 10:03 AM EST Inhaled Oxygen Concentration - - Weight 68.9 kg (152 lb) 04/19/2019 10:03 AM EST Height 172.7 cm (5' 8") 04/19/2019 10:03 AM EST Body Mass Index 23.11 04/19/2019 10:03 AM EST documented in this encounter Patient Instructions Patient InstructionsAnny Bueno NP - 04/19/2019 10:00 AM ESTRefdenise is in for prosthetics/orthotics - can work on scheduling this. Continue Keflex 500 mg four times daily until prescription is completed. Call or return if symptoms worsen or fail to improve. documented in this encounter Progress Notes Anny Bueno NP - 04/19/2019 10:00 AM EST PATIENT: Jordan Wang : 1980 DATE OF SERVICE: 04/19/2019 CHIEF COMPLAINT: Chief Complaint Patient presents with Follow Up Cellulitus L lef and foot Subjective HISTORY OF PRESENT ILLNESS: Jordan Wang is a 38-y.o. male. HPI Here for follow up of left leg cellulitis: Doing better today, swelling and redness reduced. Has appointment with wound care 05/04. Caregiver who brings him today is requesting a referral - he feels that the patients left foot is shorter than the right, causing his gait to be imbalanced and possibly contributing to the chronic wound on his left foot. 04/17/19 seen here: [facility] on 04/09 for left leg cellulitis. Chronic wound on left foot. Started on Keflex 500 mg QID for 7 days. Vahe is unsure when he finished the keflex. Left leg is not hot to the touch anymore but still swollen. He missed his appointment with wound care on Wednesday. He sees someone from wound care in [place]. No fevers. No drainage that caregiver has noticed. At that visit Plan: Caregiver had picture of cellulitis from prior to treatment. Based on this cellulitis looks much improved after 7 day course of keflex - will extend therapy by 7 days, and recheck in 3 days. He should reschedule his wound care appointment that he missed on Wednesday. Past Medical History: Diagnosis Date Generalized convulsive [...] file Gets together: Not on file Attends scientologist service: Not on file Active member of [...] Concern No Social History Narrative Lives in [facility]. Mother lives in [facility] Grandmother (Maria T Márquez -[phone], ) has POA. REVIEW OF SYSTEMS: Review of Systems Unable to perform ROS: Patient nonverbal Constitutional: Negative for fever. Skin: Negative for rash. Objective PHYSICAL EXAM: VITALS: BP 126/62 (BP Location: Right arm, Patient Position: Sitting) | Pulse 78 | Temp 96.4 F (35.8 C) (Tympanic) | Ht 5' 8" (1.727 m) | Wt 152 lb (68.9 kg) | SpO2 99% | BMI 23.11 kg/m Body mass index is 23.11 kg/m . Physical Exam Vitals signs and nursing note reviewed. Constitutional: General: He is not in acute distress. Appearance: Normal appearance. He is well-developed. Cardiovascular: Rate and Rhythm: Normal rate and regular rhythm. Heart sounds: Normal heart sounds. No murmur. No friction rub. No gallop. Pulmonary: Effort: Pulmonary effort is normal. No respiratory distress. Breath sounds: Normal breath sounds. Musculoskeletal: Left ankle: He exhibits normal range of motion, no swelling, no ecchymosis and normal pulse. No tenderness. Left foot: Normal range of motion and normal capillary refill. No tenderness , bony tenderness, swelling, crepitus or deformity. ASSESSMENT / IMPRESSION: ICD-9-CM ICD-10-CM 1. Cellulitis of left lower extremity 682.6 L03.116 2. Foot pain, left 729.5 M79.672 REFER TO PROSTHETICS & ORTHOTICS Plan 1. Foot pain, left Caregiver requesting referral for this - feels left leg is shorter and is causing a lot of his problems. - REFER TO PROSTHETICS & ORTHOTICS 2. Cellulitis of left lower extremity Foot looks much improved - no swelling redness not warm to the touch. Continue keflex as prescribed until completed. Return if symptoms worsen. Author: Anny Bueno NP 04/19/2019 11:42 documented in this encounter Plan of Treatment Date Type Specialty Care Team Description 08/03/2019 Office Visit Family [facility] Saira Horn MD [address] [place] [address] [phone] Name Type Priority Associated Diagnoses Order Schedule REFER TO PROSTHETICS & Referral Routine Foot pain, left Ordered: 04/19/2019 ORTHOTICS Health Maintenance Due Date Last Done Comments [...] Cellulitis and abscess of leg, except foot Foot pain, left Pain in limb documented in this encounter Insurance Payer Benefit Plan / Subscriber ID Effective Dates Phone Address Type Group [place] xxxxxxxx 2016-Present Medicaid [place] documented as of this encounter
--- NOTE | 2019-05-29 12:19 | UC ---
Ear Complaint HPI - HPI Summary HPI Summary: 38-year-old male with history of developmental delay intellectual disability presents with caregiver reporting that day programming workers noted some dried blood to the outside of the left ear. Caregiver notes that patient frequently scratches at is ears. Has history of cerumen impactions and is followed by ENT. Denies fever, chills, nasal congestion, or cough. - History of Current Complaint Chief Complaint: UCEar Stated Complaint: BILAT EAR PAIN Time Seen by Provider: 05/29/19 12:04 Hx Obtained From: Family/Costume Shop Coordinator Hx From Patient Unobtainable Due To: Other - Developmental delay Pain Intensity: 0 - Allergies/Home Medications Allergies/Adverse Reactions: Allergies Allergy/AdvReac Type Severity Reaction Status Date / Time Purex Laundry Soap Allergy Rash Uncoded 05/29/19 11:49 Home Medications: Home Medications levOCARNitine [Carnitor Sf] 5 ml PO BID 05/29/19 [History Confirmed 05/29/19] PMH/Surg Hx/FS Hx/Imm Hx GI/ History: Other - chronic constipation Neurological History: Seizures, Other - Hydrocephalus Psychological History: Other - developmental delay, intelectual disability - Surgical History Surgical History: Yes Surgery Procedure, Year, and Place: [facility] Shunt Placement. tendon stretching left side - Family History Known Family History: Positive: Unknown - Pt nonverbal with MR - Social History Occupation: Disabled Lives: Jail Alcohol Use: None Substance Use Type: None Smoking Status (MU): Never Smoked Tobacco Have You Smoked in the Last Year: No - Immunization History Most Recent Influenza Vaccination: January 2015 Most Recent Tetanus Shot: 2007 Most Recent Pneumonia Vaccination: 2005 Review of Systems All Other Systems Reviewed And Are Negative: Yes Constitutional: Negative: Fever, Chills Eyes: Negative: Drainage, Eye Redness ENT: Positive: Other - See HPI. Negative: Nasal Discharge Respiratory: Negative: Cough Cardiovascular: Positive: Negative Gastrointestinal: Positive: Negative Genitourinary: Positive: Negative Motor: Positive: Negative Neurovascular: Positive: Negative Musculoskeletal: Positive: Negative Neurological: Positive: Negative Is Patient Immunocompromised?: No Physical Exam - Summary Physical Exam Summary: GENERAL APPEARANCE: Alert and cooperative adult male with developmental delay who appears to be in no acute distress. EYES: Conjunctiva clear. No drainage. EARS: Right external auditory canals clear with intact, opaque tympanic membrane with good cone of light. Dried blood noted on the external ear lobe at the entrance of the external auditory canal. Small amount of dried blood also noted in the proximal external auditory with a small abrasion to the superior surface, large amount of cerumen that partially obscures the TM however no erythma is noted. NOSE: No nasal discharge. THROAT: Pharynx normal. No tonsilar inflammation, swelling, exudate, or lesions. Uvula midline. NECK: Neck supple, non-tender without lymphadenopathy. CARDIAC: Normal S1 and S2. No S3, S4 or murmurs. Rhythm is regular. There is no peripheral edema, cyanosis or pallor. Extremities are warm and well perfused. Capillary refill is less than 2 seconds. Peripheral pulses intact. LUNGS: Clear to auscultation without rales, rhonchi, wheezing or diminished breath sounds. ABDOMEN: Positive bowel sounds. Soft, nondistended, nontender. No guarding or rebound. MUSKULOSKELETAL: Moves all extremities well, good muscle tone, wheelchair dependent. SKIN: Skin normal color, texture and turgor with no lesions or eruptions. Triage Information Reviewed: Yes Vital Signs: Initial Vital Signs Temp 98.6 F 05/29/19 11:44 Pulse 92 05/29/19 11:44 Resp 18 05/29/19 11:44 Pulse Ox 98 05/29/19 11:44 Vital Signs Reviewed: Yes Ear Complaint Course/Dx - Course Course Of Treatment: 38-year-old male with history of developmental delay intellectual disability presents with caregiver reporting that day programming workers noted some dried blood to the outside of the left ear. Caregiver notes that patient frequently scratches at is ears. Has history of cerumen impactions and is followed by ENT. Denies fever, chills, nasal congestion, or cough. Afebrile. VSS. Exam revealed a clear right external auditory canal with intact, opaque tympanic membrane with good cone of light. Dried blood noted on the external ear lobe at the entrance of the external auditory canal. Small amount of dried blood also noted in the proximal external auditory with a small abrasion to the superior surface, large amount of cerumen that partially obscures the TM however no erythma is noted. Remainder of exam unremarkable. Discussed findings with caregiver. Recommending follow up with PCP or ENT as needed. Anticipatory guidance and warning symptoms reviewed with caregiver. Verbalizes understanding and agrees with POC. - Differential Dx/Diagnosis Differential Diagnosis/HQI/PQRI: Cerumen Impaction, Foreign Body, Otitis Externa , Otitis Media, Perforated TM Provider Diagnosis: Laceration of left external auditory canal Discharge ED - Sign-Out/Discharge Documenting (check all that apply): Patient Departure All imaging exams completed and their final reports reviewed: No Studies - Discharge Plan Condition: Stable Disposition: HOME Referrals: Saira Horn MD [Primary Care Provider] - If Needed Additional Instructions: The blood coming from the left ear appears to be from an abrasion (scratch) inside the ear canal. There is a large amount of ear wax in the left ear canal as well however the ear drum does not appear red or inflamed therefore I do not suspect this is from an infectious process. Try to avoid getting water in to the ear. Follow up with you primary care provider or with your ear, nose, and throat specialist if needed. Seek immediate medical attention if you develop a fever greater than 100.5 F, have persistent bleeding or discharge from the ear, develop a severe headache, behavioral changes, lethargy, or any worsening of symptoms. - Billing Disposition and Condition Condition: STABLE Disposition: Home
== END 2019-05-29 13:16 | disposition home or self-care (01) ==
LOC: UCCORT 10:53
DX: S01.312A Laceration without foreign body of left ear, initial encounter (principal); G91.9 Hydrocephalus, unspecified; K59.00 Constipation, unspecified; F81.9 Developmental disorder of scholastic skills, unspecified; Z91.09 Other allergy status, other than to drugs and biological substances; X58.XXXA Exposure to other specified factors, initial encounter; Y92.9 Unspecified place or not applicable
CPT/HCPCS: 99212; G0463